=== PATIENT | female | born 1995 | race Caucasian/White ===

== ENCOUNTER 2017-08-13 01:28 | Emergency (ER) | payer MEDICAID ==
[2017-08-13 02:24] LABS: ABSOLUTE EOSINOPHILS # (AUTO) 0.3 10^3/uL (0.0-0.6); ABSOLUTE LYMPHOCYTES (AUTO) 2.1 10^3/uL (0.5-4.7); ABSOLUTE MONOCYTES (AUTO) 0.7 10^3/uL (0.1-1.4); ABSOLUTE NEUT (AUTO) 5.8 10^3/uL (1.7-8.2); BASOPHILS % (AUTO) 0.4 % (0-2); EOSINOPHILS % (AUTO) 3.6 % (0-6); HEMATOCRIT 36.9 % (36.0-47.0); HEMOGLOBIN 12.8 g/dL (12.0-15.5); LYMPHOCYTES % (AUTO) 23.3 % (13-45); MEAN CORPUSCULAR HEMOGLOBIN 28.2 pg (27.0-33.4); MEAN CORPUSCULAR HGB CONC 34.6 g/dL (32.0-36.0); MEAN CORPUSCULAR VOLUME 82 fl (80-97); MONOCYTES % (AUTO) 7.9 % (3-13); PLATELET COUNT 175 10^3/uL (150-450); RED BLOOD COUNT 4.53 10^6/uL (3.72-5.28); SEGMENTED NEUTROPHILS % (AUTO) 64.8 % (42-78); TOTAL CELLS COUNTED % (AUTO) 100 %
--- NOTE | 2017-08-13 03:31 | RADIOLOGY REPORT (SQ) ---
EXAM DESCRIPTION: U/S OB TRANSVAGINAL W/O DOP CLINICAL HISTORY: 21 years, Female, vag bleed preg COMPARISON: None. TECHNIQUE: Transvaginal sonogram. LIMITATIONS: None. FINDINGS: Intrauterine gestation includes a fetus measuring 4.8 cm in crown-rump length corresponding with a gestational age of six weeks and two days with an CHACE of 04/06/2018. Cardiac activity is 115 bpm. 3.2 cm right ovary and 2.4 cm left ovary appear normal size, shape, echotexture, and vascularity. No significant free fluid. IMPRESSION: Living intrauterine fetus of gestational age measuring 6w2d. No evidence of complication. 2010 [employer]- All Rights Reserved
--- NOTE | 2017-08-13 03:33 | ER Document Report ---
ED General - General Chief Complaint: Vag Bleeding, +preg <12wks Stated Complaint: VAGINAL BLEEDING Time Seen by Provider: 08/13/17 01:45 Notes: Patient is a 21-year-old female at 6 weeks by LMP who presents with 2 weeks of intermittent abdominal cramping and vaginal bleeding. She describes the abdominal cramping is a moderate to mild dull, intermittent cramping pain to the lower abdomen. Nothing improves or worsens that pain. She also notes that she has had small amounts of vaginal spotting similar to a menstrual cycle bleeding. Nothing improves or worsens her symptoms. She has not had established care for this . She denies any vaginal discharge, dysuria , fever or constitutional symptoms. No abdominal trauma. - Related Data Allergies/Adverse Reactions: No Known Allergies Allergy (Unverified 08/13/17 01:33) Past Medical History - General Information source: Patient - Social History Smoking Status: Never Smoker Chew tobacco use (# tins/day): No Frequency of alcohol use: None Drug Abuse: None Lives with: Spouse/Significant other Family History: Reviewed & Not Pertinent Patient has suicidal ideation: No Patient has homicidal ideation: No Renal/ Medical History: Denies: Hx Peritoneal Dialysis Review of Systems - Review of Systems Notes: Constitutional: Negative for fever. HENT: Negative for sore throat. Eyes: Negative for visual changes. Cardiovascular: Negative for chest pain. Respiratory: Negative for shortness of breath. Gastrointestinal: Positive for abdominal cramping Genitourinary: Positive for vaginal bleeding Musculoskeletal: Negative for back pain. Skin: Negative for rash. Neurological: Negative for headaches, weakness or numbness. 10 point ROS negative except as marked above and in HPI. Physical Exam - Vital signs Vitals: Temp Pulse Resp BP Pulse Ox 98.3 F 86 16 117/60 97 08/13/17 01:37 08/13/17 01:37 08/13/17 01:37 08/13/17 01:37 08/13/17 01:37 Interpretation: Normal Notes: PHYSICAL EXAMINATION: GENERAL: Well-appearing, well-nourished and in no acute distress. HEAD: Atraumatic, normocephalic. EYES: Pupils equal round and reactive to light, extraocular movements intact, sclera anicteric, conjunctiva are normal. ENT: nares patent, oropharynx clear without exudates. Moist mucous membranes. NECK: Normal range of motion, supple without lymphadenopathy LUNGS: Breath sounds clear to auscultation bilaterally and equal. No wheezes rales or rhonchi. HEART: Regular rate and rhythm without murmurs ABDOMEN: Soft, nontender, normoactive bowel sounds. No guarding, no rebound. No masses appreciated. EXTREMITIES: Normal range of motion, no pitting or edema. No cyanosis. NEUROLOGICAL: No focal neurological deficits. Moves all extremities spontaneously and on command. PSYCH: Normal mood, normal affect. SKIN: Warm, Dry, normal turgor, no rashes or lesions noted. Course - Re-evaluation Re-evalutation: 08/13/17 03:32 Patient presents with a mild amount of vaginal bleeding in the setting of an early first trimester . A living intrauterine is visualized on transvaginal ultrasound. No active bleeding at time of presentation. She is Rh positive. Patient's abdominal exam is otherwise benign without any focal tenderness. I do not suspect an acute appendicitis, pyelonephritis, cystitis, or bowel obstruction. At this time will discharge with return precautions and follow-up recommendations. Verbal discharge instructions given a the bedside and opportunity for questions given. Medication warnings reviewed. Patient is in agreement with this plan and has verbalized understanding of return precautions and the need for primary care follow-up in the next 24-72 hours. - Vital Signs Vital signs: Temp Pulse Resp BP Pulse Ox 98.3 F 86 16 117/60 97 08/13/17 01:37 08/13/17 01:37 08/13/17 01:37 08/13/17 01:37 08/13/17 01:37 - Laboratory Result Diagrams: 08/13/17 02:13 Laboratory results interpreted by me: 08/13/17 02:13 Beta HCG, Quant 63746.00 H - Diagnostic Test Radiology reviewed: Reports reviewed Discharge - Discharge Clinical Impression: Hemorrhage, , early Condition: Good Disposition: HOME, SELF-CARE Additional Instructions: Your ultrasound today shows a living intrauterine . Many pregnancies with this complication can go on to become normal pregnancies. Please follow closely with your primary care [facility] [facility]. Please return if you develop severe abdominal pain, bleeding that goes through more than 2 pads for more than 2 hours, pass out, or have any other symptoms that are concerning to you. Please follow-up closely with your OBGYN regarding todays visit. Referrals: BRAD CRYSTAL PA-C [Primary Care Provider] - Follow up as needed HÉCTOR ADAMSON MD [ACTIVE STAFF] - Follow up as needed
[2017-08-13 04:02] VITALS: BP 108/58
== END 2017-08-13 04:01 | disposition home or self-care (01) ==
LOC: ER 01:28
DX: O20.9 Hemorrhage in early pregnancy, unspecified (principal); Z3A.01 Less than 8 weeks gestation of pregnancy
CPT/HCPCS: 36415; 76817; 84702; 85025; 86900; 86901; 99284

== ENCOUNTER 2017-09-13 14:01 | Emergency (ER) | payer MEDICAID ==
--- NOTE | 2017-09-13 15:34 | ER Document Report ---
ED Medical Screen (RME) - General Chief Complaint: Abdominal Pain Stated Complaint: ABDOMINAL PAIN Time Seen by Provider: 09/13/17 15:26 Notes: Patient is a 10weeks 21 year old female who presents with back and hip pain that has now moved into her left lower quadrant with increased urination over 3 days without pyuria, hematuria, vaginal discharge, vaginal pain, vaginal spotting. PMH: s/f chlamydia. denies FH/PMH for kidney stones OB: health department TRAVEL OUTSIDE OF THE [place] IN LAST 30 DAYS: No - Related Data Allergies/Adverse Reactions: No Known Allergies Allergy (Unverified 08/13/17 01:33) Past Medical History Renal/ Medical History: Denies: Hx Peritoneal Dialysis Physical Exam - Vital signs Vitals: Temp Pulse Resp BP Pulse Ox 99.1 F 91 H 20 115/63 98 09/13/17 14:18 09/13/17 14:18 09/13/17 14:18 09/13/17 14:18 09/13/17 14:18 - Notes Notes: PHYSICAL EXAM GENERAL: Alert, interacts well. HEAD: Normocephalic, atraumatic. LUNGS: Clear to auscultation bilaterally, no wheezes, rales, or rhonchi. No respiratory distress. HEART: Regular rate and rhythm. No murmurs, gallops, or rubs. ABDOMEN: Soft, nondistended, minimally tender along abdominal wall. No guarding , rebound, or rigidity.. Bowel sounds present in all 4 quadrants. EXTREMITIES: Moves all 4 extremities spontaneously. No edema, radial and dorsalis pedis pulses 2/4 bilaterally. No cyanosis. NEUROLOGICAL: Alert and oriented x4. Normal speech. PSYCH: Normal affect, normal mood. Course - Vital Signs Vital signs: Temp Pulse Resp BP Pulse Ox 99.1 F 91 H 20 115/63 98 09/13/17 14:18 09/13/17 14:18 09/13/17 14:18 09/13/17 14:18 09/13/17 14:18
[2017-09-13 16:07] LABS: HEMATOCRIT 39.6 % (36.0-47.0); HEMOGLOBIN 13.6 g/dL (12.0-15.5); MEAN CORPUSCULAR HEMOGLOBIN 27.6 pg (27.0-33.4); MEAN CORPUSCULAR HGB CONC 34.4 g/dL (32.0-36.0); MEAN CORPUSCULAR VOLUME 80 fl (80-97); PLATELET COUNT 181 10^3/uL (150-450); RED BLOOD COUNT 4.94 10^6/uL (3.72-5.28); RED CELL DISTRIBUTION WIDTH 13.8 % (11.5-14.0); WHITE BLOOD COUNT 11.8 10^3/uL (4.0-10.5)
[2017-09-13 16:19] LABS: AMORPHOUS SEDIMENT,URINE TRACE /HPF; APPEARANCE,URINE TURBID; BILIRUBIN,URINE NEGATIVE (NEGATIVE); COLOR,URINE YELLOW; GLUCOSE, URINE NEGATIVE (NEGATIVE); KETONES,URINE 80 mg/dL (NEGATIVE); LEUKOCYTE ESTERASE,URINE LARGE (NEGATIVE); NITRITE,URINE NEGATIVE (NEGATIVE); PROTEIN,URINE 100 mg/dL (NEGATIVE); URINE SPECIFIC GRAVITY 1.015; UROBILINOGEN,URINE NEGATIVE mg/dL (<2.0)
--- NOTE | 2017-09-13 16:20 | RADIOLOGY REPORT (SQ) ---
EXAM DESCRIPTION: U/S 1TRIMESTER/1GEST W/DOPPLER COMPLETED DATE/TIME: 09/13/2017 4:09 pm REASON FOR STUDY: pelvic pain COMPARISON: None. TECHNIQUE: Transabdominal static and realtime grayscale images acquired of the pelvis. Additional se lected spectral and color Doppler images recorded. All images stored on PACs. bHCG: Not available LIMITATIONS: None. FINDINGS: FETUS: Living intrauterine . EGA: 10 weeks 4 days CHACE: 04/07/2018 FHR: 175 beats per minute. SUBCHORIONIC BLEED: Yes SIZE OF BLEED: 2.7 cm in size UTERUS: No masses. No anomalies. 10 x 8.5 x 7.4 cm in size CERVICAL LENGTH: Not visualized RIGHT ADNEXA: Normal ovary with normal vascular flow. Right ovary 1.3 x 1.2 x 2.3 cm in size No adnexal free fluid. No adnexal masses. LEFT ADNEXA: Not visualized due to adnexal bowel gas FREE FLUID: None. OTHER: No other significant finding. IMPRESSION: LIVING INTRAUTERINE . EGA 10 weeks 4 days Trimester of : First - 0 to 13 weeks. TECHNICAL DOCUMENTATION: JOB ID: [id number] [employer]- All Rights Reserved
[2017-09-13 16:23] LABS: ANION GAP 15 (5-19); BLOOD UREA NITROGEN 5 mg/dL (7-20); CALCIUM 10.5 mg/dL (8.4-10.2); CARBON DIOXIDE 23 mmol/L (22-30); CHLORIDE 102 mmol/L (98-107); GLUCOSE 79 mg/dL (75-110); POTASSIUM 4.2 mmol/L (3.6-5.0); SODIUM 139.9 mmol/L (137-145)
[2017-09-13 16:31] LABS: ABSOLUTE LYMPHOCYTES# (MANUAL) 1.2 10^3/uL (0.5-4.7); ABSOLUTE MONOCYTES # (MANUAL) 0.9 10^3/uL (0.1-1.4); ABSOLUTE NEUTROPHILS# (MANUAL) 9.4 10^3/uL (1.7-8.2); BASOPHILS % (MANUAL) 0 % (0-2); EOSINOPHILS % (MANUAL) 2 % (0-6); LYMPHOCYTES % (MANUAL) 10 % (13-45); MONOCYTES % (MANUAL) 8 % (3-13); SEGMENTED NEUTROPHILS % (MAN) 80 % (42-78); TOTAL CELLS COUNTED 100
[2017-09-13 16:32] LABS: PLATELET COMMENT ADEQUATE; PLATELET LARGE PRESENT; TOXIC GRANULATION SLIGHT
--- NOTE | 2017-09-13 17:57 | ER Document Report ---
ED General - General Chief Complaint: Abdominal Pain Stated Complaint: ABDOMINAL PAIN Time Seen by Provider: 09/13/17 15:26 TRAVEL OUTSIDE OF THE [place] IN LAST 30 DAYS: No - HPI Patient complains to provider of: Suprapubic pain, dysuria Onset: This morning Onset/Duration: Intermittent Notes: Well-appearing young girl , 11 weeks presents with dysuria cramping lower abdominal pain. /10 without radiation nothing made it better or worse. Patient also endorses mild nausea that has been going on since she found out she was . Has not had care or ultrasound identifying . - Related Data Allergies/Adverse Reactions: No Known Allergies Allergy (Unverified 09/13/17 15:28) Past Medical History - Social History Smoking Status: Never Smoker Chew tobacco use (# tins/day): No Frequency of alcohol use: None Drug Abuse: None Family History: Reviewed & Not Pertinent Patient has suicidal ideation: No Patient has homicidal ideation: No Renal/ Medical History: Denies: Hx Peritoneal Dialysis Review of Systems - Review of Systems Constitutional: No symptoms reported EENT: No symptoms reported Cardiovascular: No symptoms reported Respiratory: No symptoms reported Gastrointestinal: Abdominal pain, Nausea Genitourinary: No symptoms reported, Dysuria Female Genitourinary: No symptoms reported Musculoskeletal: No symptoms reported Skin: No symptoms reported Hematologic/Lymphatic: No symptoms reported Neurological/Psychological: No symptoms reported Physical Exam - Vital signs Vitals: Temp Pulse Resp BP Pulse Ox 99.1 F 91 H 20 115/63 98 09/13/17 14:18 09/13/17 14:18 09/13/17 14:18 09/13/17 14:18 09/13/17 14:18 Interpretation: Normal - General General appearance: Appears well, Alert - HEENT Head: Normocephalic, Atraumatic Eyes: Normal Pupils: PERRL - Respiratory Respiratory status: No respiratory distress Chest status: Nontender Breath sounds: Normal Chest palpation: Normal - Cardiovascular Rhythm: Regular Heart sounds: Normal auscultation Murmur: No - Abdominal Inspection: Normal Distension: No distension Bowel sounds: Normal Tenderness: Nontender Organomegaly: No organomegaly - Back Back: Normal, Nontender - Extremities General upper extremity: Normal inspection, Nontender, Normal color, Normal ROM , Normal temperature General lower extremity: Normal inspection, Nontender, Normal color, Normal ROM , Normal temperature, Normal weight bearing. No: Esther's sign - Neurological Neuro grossly intact: Yes Cognition: Normal Orientation: AAOx4 Zeyad Coma Scale Eye Opening: Spontaneous Addison Coma Scale Verbal: Oriented Zeyad Coma Scale Motor: Obeys Commands Addison Coma Scale Total: 15 Speech: Normal Motor strength normal: LUE, RUE, LLE, RLE Sensory: Normal - Psychological Associated symptoms: Normal affect, Normal mood - Skin Skin Temperature: Warm Skin Moisture: Dry Skin Color: Normal Course - Re-evaluation Re-evalutation: 09/13/17 17:58 Well-appearing young female, stable vital signs all within normal limits, ultrasound shows single intrauterine , heart rate 175. Extensive lab workup shows no anemia or electrolyte abnormality, no leukocytosis. Patient will be given follow-up at our local [facility]. She will be seen tomorrow in their office. Patient given prescription for Macrobid for UTI, Reglan for nausea vomiting. Return if anything changes - Vital Signs Vital signs: Temp Pulse Resp BP Pulse Ox 99.1 F 91 H 20 115/63 98 09/13/17 14:18 09/13/17 14:18 09/13/17 14:18 09/13/17 14:18 09/13/17 14:18 - Laboratory Result Diagrams: 09/13/17 15:45 09/13/17 15:45 Laboratory results interpreted by me: 09/13/17 09/13/17 09/13/17 15:45 15:45 15:45 WBC 11.8 H Seg Neuts % (Manual) 80 H Lymphocytes % (Manual) 10 L Abs Neuts (Manual) 9.4 H BUN 5 L Calcium 10.5 H Beta HCG, Quant 032652.00 H Urine Protein 100 H Urine Ketones 80 H Urine Blood MODERATE H Ur Leukocyte Esterase LARGE H - Diagnostic Test Radiology reviewed: Reports reviewed Discharge - Discharge Clinical Impression: UTI (urinary tract infection) Qualifiers: Urinary tract infection type: site unspecified Hematuria presence: with hematuria Qualified Code(s): N39.0 - Urinary tract infection, site not specified Nausea & vomiting Qualifiers: Vomiting type: unspecified Vomiting Intractability: non-intractable Qualified Code(s): R11.2 - Nausea with vomiting, unspecified Condition: Stable Disposition: HOME, SELF-CARE Instructions: Urinary Tract Infection ([facility]) Prescriptions: Metoclopramide HCl [Reglan 10 mg Tablet] 1 - 2 tab PO ASDIR PRN #25 tablet PRN Reason: Nitrofurantoin Monohyd/M-Cryst [Macrobid 100 mg Capsule] 100 mg PO BID #14 capsule Referrals: GROVER SCHWAB MD [ACTIVE STAFF] - Follow up as needed REX SHARMA MD [ACTIVE STAFF] - Follow up as needed TYRONE BIRD MD [ACTIVE STAFF] - Follow up as needed
[2017-09-13 18:29] VITALS: BP 100/53
== END 2017-09-13 18:27 | disposition home or self-care (01) ==
LOC: ER 14:01
DX: O23.41 Unspecified infection of urinary tract in pregnancy, first trimester (principal); O21.9 Vomiting of pregnancy, unspecified; R10.2 Pelvic and perineal pain; Z3A.11 11 weeks gestation of pregnancy
CPT/HCPCS: 36415; 76801; 80048; 81001; 84702; 85025; 93976; 99284